=== PATIENT | male | born 2000 | race Two or more races ===

== ENCOUNTER 2021-03-15 13:00 | Emergency (ER) | payer SELFPAY ==
[~2021-03-15] VITALS: Ht 167.6 cm; Wt 60.3 kg
--- NOTE | 2021-03-15 13:29 | NUR ---
BIBRA39 FOR WITNESSED SEIZURE LIKE ACTIVITY. BGT 85 S/P GIVEN ORAL GLUCOSE. PT AAOX4, VSS. RR EVEN & UNLABORED. DENIES CP, SOB, DIZZINESS, N/V, POPE, WEAKNESS AT THIS TIME. PT SEEN & EVAL'D BY DR. CABRALES. MEDICATED ORDERED, PT ELIZABETH WELL. PT ON SEIZURE PRECAUTION & WILL CONT TO MONITOR.
[2021-03-15 13:30] LABS: BASOPHILS % (AUTO) 0.3 % (0.0-2.0); EOSINOPHILS % (AUTO) 0.5 % (0.0-6.0); HEMATOCRIT 42 % (39-51); HEMOGLOBIN 14.4 g/dL (13.5-17.5); LYMPHOCYTES # (AUTO) 1.8 /CMM (0.8-4.8); LYMPHOCYTES % (AUTO) 25.4 % (20.0-44.0); MEAN CORPUSCULAR HGB CONC 35 g/dl (31.0-36.0); MEAN CORPUSCULAR VOLUME 93 fL (80-96); MONOCYTES # (AUTO) 0.6 /CMM (0.1-1.30); MONOCYTES % (AUTO) 8.5 % (2.0-12.0); NEUTROPHILS # (AUTO) 4.6 /CMM (1.8-8.9); NEUTROPHILS % (AUTO) 65.3 % (43.0-81.0); PLATELET COUNT (AUTO) 177 /CMM (150-450); WHITE BLOOD COUNT (AUTO) 7.1 K/uL (4.3-11.0)
[2021-03-15] MEDS ORDERED: IV NS 0.9% 1,000 ML BAG IV ONE (13:30)
[2021-03-15] MEDS ORDERED: LEVETIRACETAM (500MG) 500 MG in IV NS 0.9% 100 ML IV ONE (13:30)
[2021-03-15] MEDS ORDERED: LEVE500T9 PO (13:30)
[2021-03-15 13:38] LABS: CALCIUM, SERUM 8.9 mg/dL (8.5-10.1); CARBON DIOXIDE 28 mmol/L (21-32); CHLORIDE 106 mmol/L (98-107); CREATININE 1.1 mg/dL (0.6-1.3); GLUCOSE 119 mg/dL (74-106); POTASSIUM 4.1 mmol/L (3.5-5.1); SODIUM SERUM 141 mmol/L (136-145); UREA NITROGEN, BLOOD 16 mg/dL (7-18)
[2021-03-15 13:52] LABS: ALANINE AMINOTRANSFERASE 24 U/L (12-78); ALBUMIN 4.1 g/dL (3.4-5.0); ALCOHOL, BLOOD < 3 mg/dL (0-0); ALKALINE PHOSPHATASE 81 U/L (46-116); ASPARTATE AMINOTRANSFERASE 17 U/L (15-37); BILIRUBIN,DIRECT 0.1 mg/dL (0.0-0.2); BILIRUBIN,TOTAL 0.5 mg/dL (0.2-1.0); TOTAL PROTEIN, SERUM 7.6 g/dL (6.4-8.2)
[2021-03-15 14:52] VITALS: BP 127/78
--- NOTE | 2021-03-15 14:52 | NUR ---
Patient discharged to home in stable condition. Written and verbal after care instructions given. Patient verbalizes understanding of instruction. IV removed. Catheter intact and site benign. Pressure and 4x4 applied to site. No bleeding noted.
== END 2021-03-15 14:53 | disposition home or self-care (01) ==
LOC: ER 13:05
DX: R56.9 Unspecified convulsions (principal); Z79.899 Other long term (current) drug therapy
CPT/HCPCS: 36415; 70450; 71045; 80048; 80076; 80320; 85025; 93005; 96365; 99291; J1953; J7030 ×2; G0480

== ENCOUNTER 2021-07-20 04:23 | Emergency (ER) | payer OTHER ==
[~2021-07-20] VITALS: Ht 162.6 cm; Wt 65.8 kg
[~2021-07-20 04:23] MED LIST: LEVE500T9 PO
--- NOTE | 2021-07-20 04:30 | NUR ---
PT BIBRA 39 FOR C/O SEIZURE LIKE ACTIVITY S/P GOT ARRESTED BY [employer] PT ALERT AND RESPONSIVE ON TRIAGE. PT HAS SPONTANEOUS NON LABORED BREATHING AND IS ACCOMPANIED BY [employer].
[2021-07-20] MEDS ORDERED: LEVETIRACETAM (500MG) 500 MG/5 ML VIAL IV ONE ×2 (04:40→05:04)
[2021-07-20 04:54] LABS: BASOPHILS # (AUTO) 0.1 K/uL (0.0-0.2); BASOPHILS % (AUTO) 0.6 % (0.0-2.0); EOSINOPHILS % (AUTO) 1.1 % (0.0-6.0); HEMATOCRIT 45 % (39-51); HEMOGLOBIN 15.4 g/dL (13.5-17.5); LYMPHOCYTES # (AUTO) 2.2 K/uL (0.8-4.8); LYMPHOCYTES % (AUTO) 27.6 % (20.0-44.0); MEAN CORPUSCULAR HGB CONC 34 g/dl (31.0-36.0); MEAN CORPUSCULAR VOLUME 92 fL (80-96); MONOCYTES # (AUTO) 0.7 K/uL (0.1-1.30); MONOCYTES % (AUTO) 9.3 % (2.0-12.0); NEUTROPHILS # (AUTO) 4.9 K/uL (1.8-8.9); NEUTROPHILS % (AUTO) 61.4 % (43.0-81.0); PLATELET COUNT (AUTO) 202 K/uL (150-450); RED BLOOD CELL COUNT(AUTO) 4.88 MIL/uL (4.5-6.0); WHITE BLOOD COUNT (AUTO) 7.9 K/uL (4.3-11.0)
--- NOTE | 2021-07-20 04:55 | NUR ---
INITIATED IV RAC #18G BLOODWORK COLLECTED AND SENT TO LAB
[2021-07-20] MEDS ORDERED: LEVETIRACETAM (500MG) 500 MG in IV NS 0.9% 100 ML IV ONE (05:00)
[2021-07-20] MEDS ORDERED: IV NS 0.9% 1,000 ML BAG IV ONE (05:00)
[2021-07-20 05:02] LABS: CARBON DIOXIDE 28 mmol/L (21-32); CHLORIDE 106 mmol/L (98-107); CREATININE 1.1 mg/dL (0.6-1.3); GLUCOSE 104 mg/dL (74-106); POTASSIUM 3.4 mmol/L (3.5-5.1); SODIUM SERUM 142 mmol/L (136-145); UREA NITROGEN, BLOOD 10 mg/dL (7-18)
--- NOTE | 2021-07-20 05:09 | NUR ---
URINE COLLECTED AND SENT TO LAB
--- NOTE | 2021-07-20 05:12 | NUR ---
PT TAKEN TO RADIOLOGY
[2021-07-20 05:13] LABS: ALANINE AMINOTRANSFERASE 25 U/L (12-78); ALBUMIN 4.4 g/dL (3.4-5.0); ALCOHOL, BLOOD < 3 mg/dL (0-0); ALKALINE PHOSPHATASE 85 U/L (46-116); ASPARTATE AMINOTRANSFERASE 19 U/L (15-37); BILIRUBIN,DIRECT 0.1 mg/dL (0.0-0.2); BILIRUBIN,TOTAL 0.3 mg/dL (0.2-1.0)
--- NOTE | 2021-07-20 05:23 | NUR ---
back from ct
[2021-07-20] MEDS ORDERED: LEVE500T9 PO (06:34)
--- NOTE | 2021-07-20 07:00 | NUR ---
Patient discharged with law enforcment in stable condition. Written and verbal after care instructions given. Patient verbalizes understanding of instruction.
[2021-07-20 07:01] VITALS: BP 133/78
== END 2021-07-20 07:02 ==
LOC: ER 04:25
DX: G40.909 Epilepsy, unspecified, not intractable, without status epilepticus (principal); Z79.899 Other long term (current) drug therapy; Z02.89 Encounter for other administrative examinations
CPT/HCPCS: 36415; 70450; 71045; 80048; 80076; 80307; 80320; 85025; 96365; 99285; J1953 ×3; J7030 ×3; G0480

== ENCOUNTER 2021-12-31 23:16 | Emergency (ER) | payer MEDICAID, OTHER ==
[~2021-12-31] VITALS: Ht 167.6 cm; Wt 57.6 kg
[2021-12-31] MEDS ORDERED: LEVETIRACETAM (500MG) 500 MG/5 ML VIAL IV ONE (23:29)
[2021-12-31] MEDS: LEVETIRACETAM (500MG) 500 MG in IV NS 0.9% 100 ML IV ONE (23:36)
[2021-12-31 23:42] LABS: BASOPHILS # (AUTO) 0.1 K/uL (0.0-0.2); BASOPHILS % (AUTO) 0.6 % (0.0-2.0); EOSINOPHILS % (AUTO) 4.6 % (0.0-6.0); HEMATOCRIT 41 % (39-51); LYMPHOCYTES # (AUTO) 2.6 K/uL (0.8-4.8); LYMPHOCYTES % (AUTO) 30.4 % (20.0-44.0); MEAN CORPUSCULAR HGB CONC 34 g/dl (31.0-36.0); MEAN CORPUSCULAR VOLUME 91 fL (80-96); MONOCYTES # (AUTO) 1.1 K/uL (0.1-1.30); MONOCYTES % (AUTO) 12.1 % (2.0-12.0); NEUTROPHILS # (AUTO) 4.5 K/uL (1.8-8.9); NEUTROPHILS % (AUTO) 52.3 % (43.0-81.0); PLATELET COUNT (AUTO) 191 K/uL (150-450); RED BLOOD CELL COUNT(AUTO) 4.51 MIL/uL (4.5-6.0); WHITE BLOOD COUNT (AUTO) 8.7 K/uL (4.3-11.0)
[2022-01-01 00:03] LABS: ALANINE AMINOTRANSFERASE 19 U/L (12-78); ALBUMIN 3.9 g/dL (3.4-5.0); ALCOHOL, BLOOD < 3 mg/dL (0-0); ALKALINE PHOSPHATASE 77 U/L (46-116); ASPARTATE AMINOTRANSFERASE 11 U/L (15-37); BILIRUBIN,DIRECT 0.1 mg/dL (0.0-0.2); BILIRUBIN,TOTAL 0.3 mg/dL (0.2-1.0); CALCIUM, SERUM 8.6 mg/dL (8.5-10.1); CARBON DIOXIDE 31 mmol/L (21-32); CHLORIDE 106 mmol/L (98-107); CREATININE 1.2 mg/dL (0.6-1.3); GLUCOSE 84 mg/dL (74-106); POTASSIUM 3.3 mmol/L (3.5-5.1); SODIUM SERUM 140 mmol/L (136-145); TOTAL PROTEIN, SERUM 7.1 g/dL (6.4-8.2); UREA NITROGEN, BLOOD 9 mg/dL (7-18)
[2022-01-01] MEDS ORDERED: LEVE1000 PO (00:23)
--- NOTE | 2022-01-01 00:47 | NUR ---
Patient discharged to home in stable condition. Written and verbal after care instructions given. Patient verbalizes understanding of instruction. RX GIVEN
[2022-01-01 00:48] VITALS: BP 124/82
== END 2022-01-01 00:48 | disposition home or self-care (01) ==
LOC: ER 23:18
DX: R56.9 Unspecified convulsions (principal); Z79.899 Other long term (current) drug therapy
CPT/HCPCS: 36415; 80048; 80076; 80320; 85025; 85730; 96365; 99284; J1953; J7030; G0480

== ENCOUNTER 2022-01-13 10:11 | Emergency (ER) | payer MEDICAID ==
[~2022-01-13] VITALS: Ht 139.7 cm; Wt 68.9 kg
[~2022-01-13 10:11] MED LIST changes: +LEVE1000 PO
--- NOTE | 2022-01-13 10:14 | NUR ---
TO ER BED 3, BIBRA 39 FROM HOME C/O WITNESSED SEIZURE EPISODE. DENIES HEAD TRAUMA, BG 141, PT STS HE WAS PLAYING VIDEO GAMES WHEN HE HAD A SEIZURE BUT DID NOT HIT HIS HEAD, AAOX3, BREATHING EVEN AND NON LABORED, CONNECTED TO MONITOR, AWAITING MD GAMBINO
[2022-01-13 11:02] LABS: CALCIUM, SERUM 9.5 mg/dL (8.5-10.1); CARBON DIOXIDE 20 mmol/L (21-32); CHLORIDE 100 mmol/L (98-107); CREATININE 1.4 mg/dL (0.6-1.3); GLUCOSE 193 mg/dL (74-106); POTASSIUM 4.3 mmol/L (3.5-5.1); SODIUM SERUM 134 mmol/L (136-145); UREA NITROGEN, BLOOD 8 mg/dL (7-18)
[2022-01-13 11:07] LABS: ALANINE AMINOTRANSFERASE 17 U/L (12-78); ALBUMIN 4.4 g/dL (3.4-5.0); ALCOHOL, BLOOD < 3 mg/dL (0-0); ALKALINE PHOSPHATASE 92 U/L (46-116); ASPARTATE AMINOTRANSFERASE 14 U/L (15-37); BILIRUBIN,DIRECT 0.1 mg/dL (0.0-0.2); BILIRUBIN,TOTAL 0.4 mg/dL (0.2-1.0); TOTAL PROTEIN, SERUM 8.2 g/dL (6.4-8.2)
[2022-01-13 11:25] LABS: BASOPHILS % (AUTO) 0.3 % (0.0-2.0); EOSINOPHILS % (AUTO) 0.4 % (0.0-6.0); HEMATOCRIT 51 % (39-51); HEMOGLOBIN 16.9 g/dL (13.5-17.5); LYMPHOCYTES # (AUTO) 2.3 K/uL (0.8-4.8); LYMPHOCYTES % (AUTO) 16.1 % (20.0-44.0); MEAN CORPUSCULAR HGB CONC 33 g/dl (31.0-36.0); MEAN CORPUSCULAR VOLUME 92 fL (80-96); MONOCYTES # (AUTO) 0.9 K/uL (0.1-1.30); MONOCYTES % (AUTO) 6.5 % (2.0-12.0); NEUTROPHILS % (AUTO) 76.7 % (43.0-81.0); PLATELET COUNT (AUTO) 220 K/uL (150-450); RED BLOOD CELL COUNT(AUTO) 5.46 MIL/uL (4.5-6.0); WHITE BLOOD COUNT (AUTO) 14.3 K/uL (4.3-11.0)
--- NOTE | 2022-01-13 11:43 | NUR ---
Patient discharged to home in stable condition. Written and verbal after care instructions given. Patient verbalizes understanding of instruction.IV removed. Catheter intact and site benign. Pressure and 4x4 applied to site. No bleeding noted.
[2022-01-13 11:45] VITALS: BP 121/70
== END 2022-01-13 11:45 | disposition home or self-care (01) ==
LOC: ER 10:15
DX: G40.509 Epileptic seizures related to external causes, not intractable, without status epilepticus (principal); Z86.69 Personal history of other diseases of the nervous system and sense organs; Z79.899 Other long term (current) drug therapy
CPT/HCPCS: 36415; 80048-TC; 80076-TC; 85025-TC; G0480